=== PATIENT | female | born 1955 | race Caucasian/White ===

== ENCOUNTER → 2016-10-16 | Outpatient (CLI) | payer MEDICARE, BC ==
--- NOTE | 2016-10-16 23:05 | MR ---
EXAMINATION TYPE: MR sacroiliac joints wo con DATE OF EXAM: 10/16/2016 10:21 PM COMPARISON: NONE HISTORY: right hip pain, for years, Standard multiplanar, multisequence MRI departmental protocol Multiplanar, multisequence images of the SI joint were acquired. FINDINGS: SI joints are symmetric. There is no evidence of erosive change. No active edema to suggest active inflammatory changes. No evidence of sclerosis. There is fatty repl acement involving the sacral aspect of both SI joints greater on the left. Intrapelvic structures demonstrate no acute abnormality. Visualized portion of the lower lumbar spine demonstrates no obvious disc herniation. IMPRESSION: No diagnostic evidence of active sacroiliitis.
== END | disposition home or self-care (01) ==
LOC: RADMRIMAIN 12:10
PROVIDERS: ATTEND Internal Medicine Rheumatology
DX: M46.1 Sacroiliitis, not elsewhere classified (principal)
CPT/HCPCS: 72195

== ENCOUNTER → 2017-09-17 | Outpatient (CLI) | payer MEDICARE, BC ==
--- NOTE | 2017-09-17 14:28 | US ---
EXAMINATION TYPE: US thyroid st tissue head/neck DATE OF EXAM: 09/17/2017 COMPARISON: NONE CLINICAL HISTORY: E04.1 Thyroid nodules. Nodules seen at previous ultrasounds in [place], not on [facility] GLAND SIZE: Right Lobe: 5.4 x 1.6 x 1.4 cm Overall Parenchyma: heterogenous Left Lobe: 4.0 x 1.5 x 1.5 cm Overall Parenchyma: heterogeneous Isthmus Thickness: 0.3 cm NODULES RIGHT: # of nodules measured on right: 1 - multiple subcentimeter, measured largest 1. 0.5 X 0.4 x 0.2 cm hypoechoic cystic nodule at the mid pole with well-defined margins. This nod ule is wider than tall and shows no intranodular vascularity. Prior size: SHOT HOLE DRILLER here LEFT: # of nodules measured on left: 2 1. 1.1 X 0.7 x 1.0 cm isoechoic solid nodule at the mid pole with well-defined margins. This nodul e is wider than tall and shows intranodular vascularity. Prior size: SHOT HOLE DRILLER here 2. 0.5 X 0.2 x 0.3 cm cystic nodule at the mid pole with well-defined margins; present with internal colloid representing a benign etiology. This nodule is wider than tall and shows no intranodular va scularity. Prior size: SHOT HOLE DRILLER here ISTHMUS: # of nodules measured in the isthmus: 0 Bilateral neck scanned, no evidence of lymphadenopathy. IMPRESSION: 1. Isoechoic hypervascular left midpole 1.1 cm thyroid nodule corresponding to TI-RADS 3 nodule. Mild ly suspicious: FNA if ? 2.5 cm; Follow if ? 1.5 cm. Short-term follow-up examination is recommended. 2. Subcentimeter left thyroid benign colloid cyst. 3. Cystic appearing subcentimeter right thyroid nodule favored to be benign although could be reevalu ated on short-term follow-up. 5. Enlarged size of the thyroid gland.
== END | disposition home or self-care (01) ==
LOC: RADUSWWP 12:24
PROVIDERS: ATTEND Internal Medicine
DX: E04.1 Nontoxic single thyroid nodule (principal)
CPT/HCPCS: 76536

== ENCOUNTER → 2018-10-23 | Outpatient (CLI) | payer MEDICARE, BC ==
--- NOTE | 2018-10-23 10:42 | US ---
EXAMINATION TYPE: US thyroid st tissue head/neck DATE OF EXAM: 10/23/2018 COMPARISON: Prior thyroid ultrasound 2018. CLINICAL HISTORY: E04.2 nontoxic multinodular goiter. GLAND SIZE: Right Lobe: 5.0 x 1.4 x 1.9 cm Overall Parenchyma: homogenous Left Lobe: 5.1 x 1.2 x 1.5 cm Overall Parenchyma: homogeneous Isthmus Thickness: 0.3 cm NODULES RIGHT: # of nodules measured on right: 1 1. 0.4 X 0.3 x 0.4 cm isoechoic solid nodule at the mid pole with well-defined margins. This nodul e is wider than tall and shows intranodular vascularity. Prior size: 0.5 x 0.4 x 0.2 cm LEFT: # of nodules measured on left: 2 1. 1.4 X 0.6 x 0.8 cm isoechoic solid nodule at the mid pole with well-defined margins. This nodule is wider than tall and shows intranodular vascularity. Prior size: 1.1 x 0.7 x 1.0 cm 2. 0.5 X 0.2 x 0.3 cm anechoic cystic nodule at the mid pole with well-defined margins. This nodule is wider than tall and shows no intranodular vascularity. Prior size: 0.5 x 0.2 x 0.3cm ISTHMUS: # of nodules measured in the isthmus: 0 Bilateral neck scanned, no evidence of lymphadenopathy. Redemonstration of heterogeneous normal-sized thyroid with scattered nodules as detailed above not si gnificantly changed when accounting for technical differences versus prior. No new nodules are eviden t. IMPRESSION:As above.
== END ==
LOC: RADUSWWP 09:42
PROVIDERS: ATTEND Internal Medicine Endocrinology, Diabetes & Metabolism
DX: E04.2 Nontoxic multinodular goiter (principal)
CPT/HCPCS: 76536

== ENCOUNTER → 2018-10-30 | Outpatient (CLI) | payer MEDICARE, BC ==
[2018-10-30 10:11] VITALS: BP 137/86; PULSE 76; RESP 16; TEMP 98.1; BMI 21.9
--- NOTE | 2018-10-30 12:30 | P.HPOB ---
History of Present Illness H&P Date: 10/30/18 Chief Complaint: The patient is here for her routine gynecologic exam. This is a 63-year-old G0 with an LMP of 2003. The patient is here to establish with this office. It has been about 6 years since her last pelvic exam. She is status post laparoscopically assisted vaginal hysterectomy(LAVH). The patient has noticed in infrequent, brief pelvic pain over the past one and a half years. It can feel like a sharp pain that goes down into the vagina. It occurs every few weeks. It typically lasts for a few seconds. She states it is not really associated with any particular activity, but she more often notices it when she is standing or walking. It does not seem to occur when she is sitting or lying down. She denies any bladder symptoms. She is on low-dose ERT for hot flashes. She recently tried to stop the ERT but hot flashes came back and were quite bothersome. Review of Systems The patient's weight has been stable over the last year. She denies respiratory, cardiac, or G.I. problems. Past Medical History Additional Past Medical History / Comment(s): Chronic back and neck issues. Thyroid nodules which are followed conservatively by her national sales representative. PAST PROGRESS MAN HISTORY: She has no history of STDs. She did have some type of laser procedure of the vulva in 2003. History of Any Multi-Drug Resistant Organisms: None Reported Past Surgical History: Hysterectomy, Orthopedic Surgery, Tonsillectomy Additional Past Surgical History / Comment(s): Neck and back surgery. Laparoscopically assisted vaginal hysterectomy in 2003. Colonoscopy 2014(next after 10 yrs). Past Psychological History: Anxiety Smoking Status: Never smoker Past Alcohol Use History: Occasional (3 per week) Past Drug Use History: None Reported Additional History: She has been since 1976. She is a retired nurse. She le in [place]. - Past Family History Mother Family Medical History: Cancer, Hypertension Additional Family Medical History / Comment(s): Lymphoma and Sjogren's syndrome. Maternal grandmother had breast and uterine cancer. Father Family Medical History: Cancer, Hypertension Additional Family Medical History / Comment(s): Cancer of the esophagus and stomach. Sister(s) Family Medical History: CVA/TIA, Hypertension Medications and Allergies Home Medications Medication Instructions Recorded Confirmed Type ALPRAZolam [Xanax] 0.5 mg PO HS 10/30/18 10/30/18 History Acetaminophen Tab [Tylenol Tab] 500 mg PO Q4H 10/30/18 10/30/18 History Cholecalciferol (Vitamin D3) 5,000 unit PO 10/30/18 History [Vitamin D3] Estradiol 0.5 mg PO DAILY 10/30/18 10/30/18 History HYDROcodone/APAP 7.5-325MG [Otley 1 tab PO Q4H PRN 10/30/18 10/30/18 History 7.5-325] Allergies Allergy/AdvReac Type Severity Reaction Status Date / Time No Known Allergies Allergy Unverified 10/30/18 10:11 Exam Vital Signs Temp Pulse Resp BP Pulse Ox 10/30/18 10:02 98.1 F 76 16 137/86 99 Intake and Output 10/29/18 10/30/18 10/30/18 22:59 06:59 14:59 Other: Weight 58.06 kg Height 5'4", weight 128 pounds, BMI 22.0. This is a well-developed well-nourished white female who is alert and oriented times 3 in no acute distress. HEENT: Within normal limits. NECK: Supple without mass or thyromegaly. CHEST AND LUNGS: Clear to auscultation. HEART: Regular rate and rhythm. BREASTS: Are without mass or discharge. AXILLARY EXAM: Negative for adenopathy. BACK: Negative for CVA tenderness. ABDOMEN: Soft, nontender, without palpable masses. PELVIC EXAM: External genitalia appears normal with mild atrophy. No lesions are noted. The patient states she has noticed slight discoloration since laser treatment was done on the vulva in 2003. She denies any changes. No significant discoloration is noted on exam today. Vagina appears normal with mild atrophy. There is no evidence of prolapse. Bimanual examination is negative for mass. There is mild intermittent generalized pelvic tenderness I bimanual examination with deep palpation. RECTAL EXAM: Rectovaginal exam is negative for mass or tenderness and is negative for occult blood. EXTREMITIES: Nontender. IMPRESSION: 1. 63-year-old menopausal female status post LAVH for benign reasons. 2. Intermittent brief pelvic pains that are infrequent over the past one and a half years with mild pelvic tenderness on exam today. Differential diagnosis will include ovarian mass, pelvic adhesions, non-gynecologic pain and possible slight pelvic prolapse. 3. History of laser treatment to the vulva for possible vulvar dysplasia in 2004 with no significant physical findings at this time. 4. The patient is on low-dose ERT for menopausal vasomotor symptoms. PLAN: 1. Pap smears have been discontinued. 2. Self breast awareness was discussed with the patient. 3. Her last bilateral mammogram was done in April 2018. The patient. She states she is due for a bilateral mammogram in April of this year. She states she gets the orders for these from Dr. Garcia. She has been getting the mammograms done in [place] 4. Osteoporosis prevention was discussed. I have stressed the importance of adequate calcium, vitamin D and regular exercise. Recommended amounts of calcium and vitamin D were also discussed. She states she had a bone density test in 2016 which was normal. We will repeat this again in a proximately 3 years. 5. We have had a long discussion regarding ERT. We discussed possible risks including possible increased risk for blood clots and stroke. I have re commended that she continued to try to wean down and off of the ERT if possible. She will continue to get the prescriptions for this from her primary care physician. 6. Pelvic ultrasound will be scheduled. The order slip was given to the patient for this. She will try to see if they intermittent pains are associated with any type of activity or condition, such as a full bladder. She will try to avoid the activities that seem to make it worse. 6.She was advised to return in one year for her annual well woman exam.
== END | disposition home or self-care (01) ==
LOC: WWCWWP 09:55
PROVIDERS: ATTEND Obstetrics & Gynecology
DX: Z53.9 Procedure and treatment not carried out, unspecified reason (principal)

== ENCOUNTER → 2018-11-07 | Outpatient (CLI) | payer MEDICARE, BC ==
--- NOTE | 2018-11-07 15:54 | US ---
EXAMINATION TYPE: US pelvic complete DATE OF EXAM: 11/07/2018 COMPARISON: NONE CLINICAL HISTORY: R10.2 Pelvic Pain. Intermittent bilateral pelvic pain, most recently left pelvic pa in upon gynecological exam; hysterectomy; takes low dose Estrogen TECHNIQUE: TA US. Transabdominal sonographic images of the pelvis were acquired. Date of LMP: 2003 EXAM MEASUREMENTS: Uterus: surgically removed Endometrial Stripe: surgically removed Right Ovary: 3.5 x 1.3 x 1.9 cm Left Ovary: 2.4 x 1.2 x 0.7 cm 1. Right Ovary: wnl 2. Left Ovary: wnl Spectral, color and waveform doppler imaging shows good arterial and venous flow within the ovaries ; there is no evidence for ovarian torsion. 3. Bilateral Adnexa: wnl but overlying bowel peristalsing is noted. 4. Posterior cul-de-sac: wnl IMPRESSION: 1. Postsurgical changes with no abnormal adnexal mass or free fluid.
== END | disposition home or self-care (01) ==
LOC: RADUSWWP 14:45
PROVIDERS: ATTEND Obstetrics & Gynecology
DX: Z90.710 Acquired absence of both cervix and uterus (principal)
CPT/HCPCS: 76856

== ENCOUNTER → 2019-04-16 | Outpatient (CLI) | payer MEDICARE, BC ==
--- NOTE | 2019-04-16 14:56 | US ---
EXAMINATION TYPE: US thyroid st tissue head/neck DATE OF EXAM: 04/16/2019 COMPARISON: US 10/23/2018 CLINICAL HISTORY: E04.2 Multinodular Goiter. Follow up thyroid nodules GLAND SIZE: Right Lobe: 5.1 x 1.3 x 2.2 cm Overall Parenchyma: homogenous Left Lobe: 4.9 x 1.3 x 1.7 cm Overall Parenchyma: homogeneous Isthmus Thickness: 0.2 cm NODULES RIGHT: # of nodules measured on right: 2 1. 0.4 X 0.3 x 0.4 cm hypoechoic solid nodule at the upper pole with well-defined margins. This nod ule is wider than tall and shows intranodular vascularity. Prior size: 0.4 x 0.3 x 0.4 cm 2. 0.4 X 0.3 x 0.4 cm hypoechoic cystic nodule at the upper pole with well-defined margins. This nod ule is wider than tall and shows no intranodular vascularity. Prior size: no previous LEFT: # of nodules measured on left: 2 1. 1.3 X 0.6 x 1.0 cm isoechoic solid nodule at the mid pole with poorly defined margins. This nodu le is wider than tall and shows intranodular vascularity. Prior size: 1.4 x 0.6 x 0.8 cm 2. 0.5 X 0.2 x 0.3 cm hypoechoic mixed nodule at the mid pole with well-defined margins. This nodule is wider than tall and shows no intranodular vascularity. Prior size: 0.5 x 0.2 x 0.3 cm ISTHMUS: # of nodules measured in the isthmus: 0 Bilateral neck scanned, no evidence of lymphadenopathy. IMPRESSION: Multinodular goiter. Multiple bilateral thyroid nodules are similar in size to the prior exam with a single new right-sided nodule measuring only 0.4 cm.
== END | disposition home or self-care (01) ==
LOC: RADUSWWP 14:11
PROVIDERS: ATTEND Internal Medicine Endocrinology, Diabetes & Metabolism
DX: E04.2 Nontoxic multinodular goiter (principal)
CPT/HCPCS: 76536

== ENCOUNTER → 2019-10-22 | Outpatient (CLI) | payer MEDICARE, BC ==
--- NOTE | 2019-10-22 14:11 | US ---
EXAMINATION TYPE: US thyroid st tissue head/neck DATE OF EXAM: 10/22/2019 COMPARISON: US 04/16/2019 CLINICAL HISTORY: E04.2 Nontoxic multinodular goiter. GLAND SIZE: Right Lobe: 4.7 x 1.3 x 1.4 cm Overall Parenchyma: homogenous Left Lobe: 4.7 x 1.2 x 1.6 cm Overall Parenchyma: homogeneous Isthmus Thickness: 0.2 cm NODULES RIGHT: # of nodules measured on right: 2 1. 0.4 X 0.3 x 0.4 cm hypoechoic mixed nodule at the upper pole with well-defined margins; . This nodule is wider than tall and shows intranodular vascularity. Prior size: 0.4 x 0.3 x 0.4 cm 2. 0.4 X 0.3 x 0.3 cm hypoechoic cystic nodule at the mid pole with well-defined margins; . This no dule is wider than tall and shows no intranodular vascularity. Prior size: 0.4 x 0.3 x 0.4 cm LEFT: # of nodules measured on left: 2 1. 1.6X 0.6 x 0.9 cm hypoechoic solid nodule at the mid pole with poorly defined margins; . This n odule is wider than tall and shows intranodular vascularity. Prior size: 1.3 X 0.6 x 1.0 cm 2. 0.6X 0.2 x 0.3 cm hypoechoic cystic nodule at the mid pole with well-defined margins; . This nod ule is wider than tall and shows no intranodular vascularity. Prior size: 0.5 x 0.2 x 0.3 cm ISTHMUS: # of nodules measured in the isthmus: 0 Bilateral neck scanned, no evidence of lymphadenopathy. Redemonstration of homogeneous normal-sized thyroid with stable scattered small nodules along with do minant slightly hypoechoic oval poorly defined 1.6 cm nodule anteriorly mid to lower pole level accou nting for technical differences. IMPRESSION: Overall stable findings. Findings consistent with multinodular goiter redemonstrated. No new greater than 1 cm nodules evident.
== END | disposition home or self-care (01) ==
LOC: RADUSWWP 12:26
PROVIDERS: ATTEND Internal Medicine Endocrinology, Diabetes & Metabolism
DX: E04.2 Nontoxic multinodular goiter (principal)
CPT/HCPCS: 76536

== ENCOUNTER → 2019-12-17 | Outpatient (CLI) | payer MEDICARE, BC ==
--- NOTE | 2019-12-17 11:15 | MM ---
Reason for exam: additional evaluation requested from prior study. Last mammogram was performed 1 year and 7 months ago. History: Patient is postmenopausal and is nulliparous. Family history of breast cancer in maternal grandmother. Physical Findings: Nurse did not find any significant physical abnormalities on exam. MG 3D Diag Mammo W/Cad CHANTALE Bilateral CC and MLO view(s) were taken. Prior study comparison: May 03, 2018, mammogram. May 02, 2017, mammogram. The breast tissue is extremely dense which could obscure a lesion on mammography. There is no discrete abnormality. These results were verbally communicated with the patient and result sheet given to the patient on 12/17/19. ASSESSMENT: Negative, BI-RAD 1 RECOMMENDATION: Routine screening mammogram of both breasts in 1 year. Some consider ultrasound surveillance in patient extremely dense tissue.
== END | disposition home or self-care (01) ==
LOC: RADMAMWWP 11-26 10:10
PROVIDERS: ATTEND Internal Medicine
DX: R92.8 Other abnormal and inconclusive findings on diagnostic imaging of breast (principal)
CPT/HCPCS: 77066; G0279; 77062

== ENCOUNTER → 2020-10-14 | Outpatient (CLI) | payer MEDICARE, BC ==
--- NOTE | 2020-10-15 08:48 | US ---
EXAMINATION TYPE: US thyroid st tissue head/neck DATE OF EXAM: 10/14/2020 COMPARISON: 10/22/2019 CLINICAL HISTORY: E04.2 MULTINODULAR GOITER. Follow up thyroid nodules GLAND SIZE: Right Lobe: 5.0 x 1.5 x 1.8 cm Overall Parenchyma: homogenous Left Lobe: 4.4 x 1.3 x 1.7 cm Overall Parenchyma: homogeneous Isthmus Thickness: 0.3 cm NODULES RIGHT: # of nodules measured on right: 2 1. 0.5 X 0.3 x 0.5 cm, upper, mixed, hypoechoic nodule, which is wider than tall, with smooth easton ns, without echogenic foci. This is a spongiform nodule. Prior size: 0.4 x 0.3 x 0.4 cm 2. 0.3 X 0.3 x 0.4 cm, mid , cystic, hypoechoic nodule, which is wider than tall, with smooth easton ns, without echogenic foci. This is a colloid cyst. Prior size: 0.4 x 0.3 x 0.3 cm LEFT: # of nodules measured on left: 2 1. 1.3 X 0.8 x 1.1 cm, mid, solid, isoechoic nodule, which is wider than tall, with ill-defined mar gins, without echogenic foci. Prior size: 1.6 x 0.6 x 0.9 cm 2. 0.6 X 0.3 x 0.4 cm, mid, cystic, cystic nodule, which is wider than tall, with smooth margins, with echogenic foci. This is suggestive of a colloid cyst. Prior size: 0.6 x 0.2 x 0.3 cm ISTHMUS: # of nodules measured in the isthmus: 0 Bilateral neck scanned, no evidence of lymphadenopathy. IMPRESSION: Overall stable findings. Findings are consistent with multinodular goiter of the thyroid gland. No ne w nodules are seen.
== END | disposition home or self-care (01) ==
LOC: RADUSWWP 16:33
PROVIDERS: ATTEND Internal Medicine Endocrinology, Diabetes & Metabolism
DX: E04.2 Nontoxic multinodular goiter (principal)
CPT/HCPCS: 76536